=== PATIENT | male | born 1985 | race Two or more races ===

== ENCOUNTER 2020-01-19 12:10 | Emergency (ER) | payer OTHER ==
[~2020-01-19] VITALS: Ht 172.7 cm; Wt 77.3 kg
[2020-01-19] MEDS ORDERED: ACETAMINOPHEN/CODEINE 300-30 MG TABLET PO ONE (12:45)
[2020-01-19] MEDS ORDERED: IBUPROFEN 600 MG TABLET PO ONE (12:45)
[2020-01-19 14:27] VITALS: BP 130/74
== END 2020-01-19 14:44 | disposition home or self-care (01) ==
LOC: EMS 12:15
DX: S62.622A Displaced fracture of middle phalanx of right middle finger, initial encounter for closed fracture (principal); S62.624A Displaced fracture of middle phalanx of right ring finger, initial encounter for closed fracture; S00.03XA Contusion of scalp, initial encounter; S70.311A Abrasion, right thigh, initial encounter; Y04.2XXA Assault by strike against or bumped into by another person, initial encounter; Y93.39 Activity, other involving climbing, rappelling and jumping off; Y92.89 Other specified places as the place of occurrence of the external cause; Y99.8 Other external cause status
CPT/HCPCS: 70450